=== PATIENT | male | born 1955 | race Caucasian/White ===

== ENCOUNTER 2017-11-11 08:53 | Emergency (ER) | payer BC ==
[~2017-11-11] VITALS: Ht 188 cm; Wt 132.9 kg
[~2017-11-11 08:53] MED LIST: ATOR-26 PO; BENA1TAB53 PO; CANA1TAB PO; DILT1CAP PO; LNX25 PO; MCR5 PO; METF1000 PO; PANT40TA PO; RIVA1TAB4 PO
[2017-11-11 08:57] VITALS: BP 173/93; PULSE 103; TEMP 36.4; O2SAT 96; Ht 188 cm; Wt 132.9 kg
[2017-11-11] MEDS ORDERED: DILT360C22 PO (09:36)
--- NOTE | 2017-11-11 12:57 | EMERGENCY ROOM VISIT NOTE ---
ED Visit Note First contact with patient: 09:07 Chief Complaint: Nosebleed. History of Present Illness: Mr. Castaneda is a 62-year-old white male who ambulates into the ED complaining of a right sided epistaxis. Historically patient reports she has a history of atrial fibrillation that has been on Xarelto for up to 6 years and has had no complications. Patient reports approximately 12 days ago without and initiating event patient reports she started bleeding from the right nostril. He reports he was seen at the [facility] Emergency Department. He reported that they cauterized a bleeding vessel in his nose and he was discharged to home. Then 3 days ago he had return of bleeding. Once again he was seen at the [facility] Emergency Department and reports that a Rhino Rocket was placed in the nose. He was seen 2 days later and had the rocket removed then had return of bleeding. Once again the Rhino Rocket was replaced in the nostril. Patient reports when he awoke from sleep today he noted bloody drainage from the exterior portion of the right nostril around the Rhino Rocket. He also reports he had the sensations of bleeding in the back of his throat. Once again this all started without precipitating cause. Currently this is the patient's only complaint is the bleeding. He denies any associated fevers, chills, sweats, skin eruptions, headache, dizziness, lightheadedness, sinus/nasal pain, upper respiratory tract symptoms, short of breath, cough, wheezing, other unusual bleeding. Additionally patient does report on his second ED visit laboratory tests were performed and was reported as normal. Review of Systems: As noted above in history of present illness. 8 body systems were reviewed and found to be negative as noted above. Past Medical History: As previously noted, diabetes, hypertension. Current Medications: Medications Dose Route/Sig Max Daily Dose Days Date Category Tiazac 360 Mg (Diltiazem Hcl Extended Release) 360 Mg Cap 360 Mg PO DAILY 11/11/17 Reported Lipitor (Atorvastatin Calcium) 80 Mg Tab 80 Mg PO DAILY 10/10/14 Reported Digoxin 0.25 Mg Tab 0.25 Mg PO DAILY 10/10/14 Reported Invokana (Canagliflozin) 100 Mg Tab 100 Mg PO DAILY 10/10/14 Reported Glucophage (Metformin Hcl) 1,000 Mg Tab 1,000 Mg PO BID 10/10/14 Reported Glyburide 5 Mg Tab 10 Mg PO BID 10/10/14 Reported Xarelto (Rivaroxaban) 20 Mg Tab 20 Mg PO DAILY 10/10/14 Reported Lotensin (Benazepril HCl) 40 Mg Tab 40 Mg PO DAILY 10/10/14 Reported Protonix (Pantoprazole Sodium) 40 Mg Tab 40 Mg PO DAILY 10/10/14 Reported Allergies to Medications: Patient denies. Social History: Patient is currently employed; he feels safe in his home environment; he denies tobacco and alcohol use. Physical Examination: Vital Signs: Date Time Temp Pulse Resp B/P (MAP) Pulse Ox O2 Delivery O2 Flow Rate FiO2 11/11/17 08:57 36.4 103 18 173/93 96 Room Air GENERAL: 62-year-old male in no acute distress, nontoxic-appearing, afebrile and hemodynamically stable. NEUROLOGICAL: Awake, alert and oriented to person, place and time. Answering questions appropriately and following commands. Normal gait. Good hand eye coordination. SKIN: Warm, dry and pink. HEENT: Atraumatic and normocephalic. No facial swelling or erythema. Sclera white and conjunctiva pink. After he was able of Rhino Rocket the right nostril was explored and there was no active bleeding. I did have the patient vigorously blow his nose 5 times and he had no return of bleeding and there was only a scant amount of blood on the tissue. Oh erythema or tenderness over the frontal or maxillary sinuses. Oral cavity moist and pink. Airway is patent. Pharynx is nonerythematous or edematous. No blood observed in the posterior pharyngeal area. Speech normal. ED Course: Patient is assessed as noted above. Patient's medication list was reviewed. Patient's balloon was deflated in his Rhino Rocket and it was easily removed without difficulty. As previously noted his nasal cavity was evaluated and there was no active bleeding. I did have the patient blow his nose multiple times and air was no return of bleeding. Patient was educated about today's findings and instructed on his treatment plan ; he verbalized understanding and agreement with this plan. Clinical Impression: Epistaxis, resolved. Packing removal. Disposition: Patient discharged home in stable condition; prior to departure he was reassessed and remained pain and symptom-free with no bleeding. Plan: Patient was encouraged to continue his current medications as prescribed. Patient reports patient has been seen previously by Dr. Knowles for repair of a deviated septum; he was referred back to him for further evaluation and care. Patient was struck did on use of nasal pincher and the use of Afrin. Patient was encouraged return ED for uncontrolled recurrent bleeding or any new/ concerning symptoms.
== END 2017-11-11 09:35 | disposition home or self-care (01) ==
LOC: C.EDB 08:54
DX: R04.0 Epistaxis (principal)